=== PATIENT | female | born 1925 | race Caucasian/White ===

== ENCOUNTER → 2016-03-23 | Outpatient (REF) | payer MEDICARE, OTHER, MEDICAID ==
[~2016-03-23] MED LIST: /ADVA50050 IN; /AMLO25TA OR; /ROPI1TA PO; /ROPI5TA OR; /WARF2TA OR; ACET65TA OR; ADV250INH INH; ALBU83IN INH; ALLO100T PO; ARTISOL2 OU; ATEN50TA2 PO; CEFD1CAP8 PO; CIPR25SS OR; COLA100C PO; COLA100C2 OR; COUM2TAB10 PO; Colace PO; Coumadin PO; FLAG500T PO; FLEEENE4 PR; FURO1TAB15 PO; LASI40TA OR; LASI40TA PO; LEVO25TABR OR; LEVO75TA4 PO; LOPR50TA OR; Levothyroxine PO; MAGN400T5 PO; MILKSUS OR; MILKSUS PO; MIRALEX OR; OMEP20TA7 OR; OXYC1TAB23 PO; PERC5TAB6 PO; POTA20TA2 OR; PRIL20CA OR; ProAir HFA INH; QUES4POW2 PO; REQU1TAB16 PO; SALI0.653; SERT25TA2 OR; SERT50TA2 OR; SIME80TA PO; SORBITOL PO; Slow Mag PO; TRAM50TA2 OR; TYL PO; TYLE325T5 PO; Tramadol PO; ZOLO25TA OR; ZOLO50TA OR; Zoloft PO; [UNRECOGNIZED DRUG - CODE] PR; fleet enema PR; mirapex
== END ==
PROVIDERS: ATTEND Internal Medicine
DX: R00.0 Tachycardia, unspecified (principal)